=== PATIENT | female | born 1965 | race Caucasian/White ===

== ENCOUNTER 2023-05-11 11:18 | Outpatient (CLI) | payer BC, SELFPAY ==
[2023-05-11 11:56] LABS: Basophils Percent Auto 0.4 % (0.2-1.2); Eosinophils Absolute Auto 0.1 K/mm3 (0-0.3); Eosinophils Percent Auto 2.1 % (0-4.4); Hematocrit 44.4 % (37.0-47.0); Hemoglobin 14.5 g/dL (12.0-15.0); Immature Granulocyte Absolute 0.02 K/mm3 (0.00-0.031); Immature Granulocyte Percent A 0.4 % (0-0.5); Lymphocytes Absolute Auto 1.55 K/mm3 (0.9-3.2); Lymphocytes Percent Auto 29.2 % (18.3-44.2); Mean Corpuscular HGB Conc 32.7 g/dl (32-36); Mean Corpuscular Hemoglobin 30.9 pg (26-34); Mean Corpuscular Volume 94.5 fl (80-100); Mean Platelet Volume 10.4 fl (7.4-10.4); Monocytes Absolute Auto 0.4 K/mm3 (0.1-0.6); Monocytes Percent Auto 7.5 % (2.6-8.5); Neutrophils Absolute Auto 3.2 K/mm3 (1.3-6.7); Neutrophils Percent Auto 60.4 % (45.5-73.1); Platelet Count Result 221 k/mm3 (150-375); Red Cell Distribution Width 12.1 % (11.5-14.5); White Blood Count 5.3 K/mm3 (4.5-10.0)
== END 2023-05-11 11:19 | disposition home or self-care (01) ==
PROVIDERS: PCP Family Medicine; Visit Provider Obstetrics & Gynecology
DX: Z01.812 Encounter for preprocedural laboratory examination (principal); N81.4 Uterovaginal prolapse, unspecified
CPT/HCPCS: 36415; 85025; 86850; 86900; 86901

== ENCOUNTER 2023-05-15 03:15 | Day surgery (SDC) | payer BC, SELFPAY ==
[2023-05-01 13:46] VITALS: BMI 27.5
--- NOTE | 2023-05-01 13:49 | PC.NURSE ---
Report to the Outpatient Waiting Room, entrance under the green pavilion located off [facility], at time _0930_ on date _[id number]_. Planned Procedure Time: _1130_. Time changes happen often and if your time is changed the preop area will call you the afternoon before. - You and your visitor will be asked to self-screen and do not enter if you have any COVID symptoms. - A mask is optional within the hospital at this time. Patients may have clear liquids (water, carbonated beverages, clear teas, apple juice) until 3 hours prior to surgery with a maximum of 20 ounces. - No food from midnight until time of surgery Take the following medications with a SIP of water the morning of surgery: ___Synthroid DO NOT STOP ANY OF YOUR OTHER PRESCRIPTION MEDICATIONS PRIOR TO SURGERY ?EXCEPT THE FOLLOWING Medications to discontinue per physician None Date to take last dose Please no make-up, nail omani, hairspray, perfume, deodorant, or body powder the day of surgery. No jewelry (including any body piercings) or valuables the day of surgery, leave them at home. Please take a shower or bath the night before, or the morning of, surgery with an antibacterial soap. Wear comfortable, loose fitting clothing. - Jewelry must be removed prior to entering the operating room. Rings and piercings that are not removed may be cut off. - The hospital will not accept responsibility for valuables. - Please leave all valuables, including medications, at home the day of surgery. If you are going home after surgery, a licensed local company hazmat driver must drive you home. - NO public transportation without another adult if you receive anesthesia. - We recommend that an adult stay with you for 24 hours following discharge. - We also recommend that you do not drive, make important decision, drink alcoholic beverages, or take any drugs that were not prescribed by your health care provider for at least 24 hours after your discharge time. Follow any additional instructions given to you from your surgeon. If you or anyone in your household have experienced Covid symptoms in the past week, please notify your surgeon or the nurse liaison at the phone number below for possible testing. Telephone instructions given to __Patient___and asked if any additional questions and then verbalized understanding. Patient advised to call surgeon office or pre surgery nurse liaison [phone] if any additional questions.
--- NOTE | 2023-05-12 07:18 | PM.IMHP ---
H&P: HPI History of Present Illness Date/Time: 05/12/23 07:18 Chief Complaint: uterine fibroids/ uterine prolapse/pelvic pain/ abdominal hernia Narrative: this is a 57-year-old female 3 para 3 admitted for robotic total vaginal direct me and bilateral salpingo-oophorectomy as well as hernia repair with Dr. Serrato. Says second-degree prolapse with uterine fibroids pelvic pain and dyspareunia risks and benefits of this procedure reviewed including exclusive of , aspiration pneumonia, bleeding, transfusion, perforation injury to bowel, bladder, ureters, or other internal organs with need for open laparotomy. She received the A[employer] handout entitled hysterectomy as well as de Gianfranco handout. She had all questions answered. She asked to proceed PMFSH Past Medical History Medical History Asthma History of blood transfusion Hypothyroid Surgical History Surgical History History of appendectomy History of endometrial ablation Family History Family History Other Diabetes mellitus Heart disease Hypertension Social History Social History Years smoked: 10 Smoking status: Former smoker Tobacco type: cigarettes Smoking end date: 05/01/19 Alcohol intake: current Alcohol use details: socially Living arrangements: with family Occupation/Education: occupation Additional occupation/education comments: Self Employed Spiritual care concerns: No Meds Home Medications and Allergies Home Medications Medication Instructions Recorded Confirmed Type levothyroxine 25 mcg tablet 25 mcg PO DAILY 01/26/23 05/01/23 History (Synthroid) Allergies Allergy/AdvReac Type Severity Reaction Status Date / Time azithromycin AdvReac Intermediate Rash Verified 05/01/23 13:32 Exam Const: General: cooperative, healthy appearing, comfortable and average body habitus Orientation/consciousness: oriented to person, oriented to place and oriented to time HENMT: Head: normal to inspection Resp: Effort & Inspection: normal respiratory effort Cardio: Rate: regular rate Rhythm: regular rhythm Heart sounds: S1 normal heart sound present and S2 normal heart sound present GI: Inspection: visible herniation GI Palp: Yes abdominal tenderness : External Female Exam: normal external appearance Speculum Exam - Vagina: normal appearance of the vagina Speculum Exam - Cervix: normal appearance of the cervix ( second-degree prolapse present) Bimanual exam- vagina & uterus: enlarged Bimanual Exam- Adnexa, other: normal adnexae Assessment and Plan Assessment and plan (1) Ventral hernia: Code(s): K43.9 - Ventral hernia without obstruction or gangrene Status: Acute (2) Pelvic pain: Code(s): R10.2 - Pelvic and perineal pain Status: Acute (3) Uterine fibroid: Code(s): D25.9 - Leiomyoma of uterus, unspecified Status: Acute (4) Uterine prolapse: Code(s): N81.4 - Uterovaginal prolapse, unspecified Status: Acute Plan robotic total vaginectomy and bilateral salpingo-oophorectomy. Dr. Obando will proceed with hernia separate cover
[2023-05-15] VITALS (10 sets, daily range): BP systolic 94–129; BP diastolic 61–80; PULSE 61–94; RESP 12–20; TEMP 36.3–37.1; O2SAT 95–100
--- NOTE | 2023-05-15 06:40 | WPDHPUPDATE1 ---
History and Physical Update Update Date/Time: 05/15/23 06:40 History and Physical has been reviewed, including an updated exam of the patient. There are NO changes in the patient's condition. Risks, benefits, and alternatives have been discussed and questions answered. Patient agrees to proceed with procedure.
[2023-05-15] MEDS: LACTATED RINGERS 1,000 ML 30 ML IV CONT ×2 (10:23→14:11)
[2023-05-15] MEDS: KETOROLAC 15 MG/ML VIAL (*BKC) IV PUSH (10:24)
[2023-05-15] MEDS: ACETAMINOPHEN 500 MG TABLET 1000 MG PO (10:24)
--- NOTE | 2023-05-15 11:29 | WPDHPUPDATE1 ---
History and Physical Update Update Date/Time: 05/15/23 11:29 History and Physical has been reviewed, including an updated exam of the patient. There are NO changes in the patient's condition. Risks, benefits, and alternatives have been discussed and questions answered. Patient agrees to proceed with procedure.
--- NOTE | 2023-05-15 11:30 | PM.IMHP ---
H&P: HPI History of Present Illness Date/Time: 05/15/23 11:30 Chief Complaint: umbilical hernia Narrative: Anne is a 57 y/o female who is seen in the office at the request of Dr. Harinder Gabriel for evaluation of umbilical hernia. She reports having noticed an umbilical bulge that started 1 year ago and has increased in size. She reports as having a burning pain associated with it. She is wanting to coordinate this case with Dr. Harinder Gabriel who will be doing a hysterectomy. Review of Systems Review of Systems: All systems reviewed & are unremarkable except as noted in HPI and below PMFSH Past Medical History Medical History Asthma History of blood transfusion Hypothyroid Surgical History Surgical History History of appendectomy History of endometrial ablation Family History Family History Other Diabetes mellitus Heart disease Hypertension Social History Social History Years smoked: 10 Smoking status: Former smoker Tobacco type: cigarettes Smoking end date: 05/01/19 Alcohol intake: current Alcohol use details: socially Living arrangements: with family Occupation/Education: occupation Additional occupation/education comments: Self Employed Spiritual care concerns: No Meds Home Medications and Allergies Home Medications Medication Instructions Recorded Confirmed Type levothyroxine 25 mcg tablet 25 mcg PO DAILY 01/26/23 05/15/23 History (Synthroid) hydrocodone 5 mg-acetaminophen 325 1 tablet PO Q4H PRN pain #30 tabs 05/15/23 Rx mg tablet Allergies Allergy/AdvReac Type Severity Reaction Status Date / Time latex Allergy Severe Swelling Verified 05/15/23 09:24 azithromycin AdvReac Intermediate Rash Verified 05/15/23 09:22 Vital Signs Vital Signs - 24 hr 05/15/23 09:56 Temperature 36.8 C Pulse Rate 76 Respiratory Rate 16 Blood Pressure 129/69 Pulse Oximetry 97 Oxygen Delivery Room Air Exam Const: General: cooperative, comfortable and no acute distress Resp: Auscultation: clear to auscultation bilaterally Cardio: Rate: regular rate Rhythm: regular rhythm GI: Inspection: normal to inspection and distended GI Palp: Yes abdominal tenderness, Yes Soft to palpation and Yes Tenderness to palpation present (GI) Other: 3 cm umbilical defect, tender Skin: General skin exam: normal color and no rashes or lesions noted Assessment and Plan Assessment and plan (1) Ventral hernia: Code(s): K43.9 - Ventral hernia without obstruction or gangrene Status: Acute Assessment and Plan: slightly larger in size, will repair robotically c mesh in concurrent case with Dr. Arias
[2023-05-15] MEDS: ceFAZolin 2 GM/D5W 50 ML 2 GM/50 ML BAG IVPB (11:39)
--- NOTE | 2023-05-15 12:38 | W.PM.PROC2 ---
Procedure Note - Detailed Date of Procedure 05/15/23 Pre-op Diagnosis [place] proplapse, pelic pain, dyspareunia, ventral he Post-op Diagnosis Same Procedure Performed Robotic total vaginal hysterectomy and bilateral salpingo-oophorectomy. This was done in conjunction with ventral repair robotically please see his operative report separate cover Surgeon Jason Gabriel MD Anesthesia General Indications Is a 57-year-old female with uterine prolapse pain dyspareunia and a ventral hernia Findings Moderate-sized ventral hernia. Uterus is mildly enlarged. With second-degree prolapse. Ovaries and tubes appeared within normal limits. Description of Procedure Patient was prepped draped in the normal sterile fashion placed in dorsal lithotomy position. Under excellent general trach anesthesia weighted speculum placed posterior fornix vagina. Anterior lip of cervix grasped with single-tooth tenaculum. Uterus sounded to 9cm. Serial dilatation with fragmented dilators performed followed by passage of the 8 RORO and the 3. Cold cup. Next the 16 [place] catheter was placed in the bladder drained of clear urine. The weighted speculum and single-tooth removed. The gloves were changed. A supraumbilical incision made the Veress needle passed in the abdomen. Abdomen filled with CO2 gas to 15mm Hg. The 8mm trocar advanced in the abdomen. Downside visualized no injury seen. Patient placed in 20? Trendelenburg. Right left lateral quadrant incisions were made the 8mm trocars advanced under direct visualization assuring no injury. A left upper quadrant incision made the 8mm trocar advanced under direct visualization assuring no injury. The robot was docked. Attention was turned to the certified rehabilitation counselor. The left round ligament ligament was grasped, burned, cut. Anterior bladder flap was formed by sharply dissecting the peritoneum. This was brought to the opposite round ligament was class, burned, cut. Next the left infundibulopelvic structure was skeletonized to remove the left ovary and tube. This was clamped, burned, cut brought to the level of previously cut round ligament. In like fashion removing the right ovary, infundibulopelvic structure was skeletonized clamping burning cutting and bringing this to level of the previously cut round ligament. Cardinal broad ligaments on the left were then serially skeletonized clamping burning cutting and hugging the cervix uterus until the tortuous uterine vessels could be seen on the left. They were individually clamped, burned, cut. In like fashion the cardinal broad ligaments on the right were serially skeletonized clamping burning cutting hugging the cervix uterus to the uterine vessels could be seen on the right these were individually clamped, burned, cut. Excellent blanching the uterus was noted. A colpotomy incision was made in the cervix uterus ovaries and tubes removed through the vagina. Vagina was closed with continuous running 0V lock from lateral edge to lateral edge back to midline. Irrigation undertaken to clear. Hemostasis was assured blood loss was about 5cc at that point. The robot was undocked the gas removed from the abdomen. The trocars removed the incisions closed with 4 Monocryl and glue. At this point Dr. Serrato to cover for repair of the ventral hernia there were no complications to this point Estimated Blood Loss 5 Drains No Packing No Pathology Yes Complications No immediate complications Condition Stable Disposition PACU
--- NOTE | 2023-05-15 12:43 | P.DS_ITS ---
DS: Admitting Diagnosis Discharge Date 05/16/2023 Admitting Diagnosis Uterine prolapse/uterine fibroids/pelvic pain/ventral hernia DS: Discharge Diagnosis Discharge Diagnosis (1) Uterine prolapse: Code(s): N81.4 - Uterovaginal prolapse, unspecified Status: Acute (2) Uterine fibroid: Code(s): D25.9 - Leiomyoma of uterus, unspecified Status: Acute (3) Pelvic pain: Code(s): R10.2 - Pelvic and perineal pain Status: Acute (4) Ventral hernia: Code(s): K43.9 - Ventral hernia without obstruction or gangrene Status: Acute DS: Summary Hospital Course Reason for hospitalization: Patient was admitted for robotic total hysterectomy and bilateral salpingo- oophorectomy 09/15/2022 she was also had ventral hernia repair Hospital Course: Her hospital course unremarkable. For 24hour stay she remained afebrile. She was up, voiding without difficulty, ambulating eating reviewed I examined generally without complaints. Time Spent with Patient Time attestation: Total time spent providing and/or coordinating discharge services: Exam Const: General: cooperative, healthy appearing and comfortable Nutritional Appearance: average body habitus Orientation/consciousness: oriented to person, oriented to place and oriented to time Resp: Effort & Inspection: normal respiratory effort Cardio: Rate: regular rate Rhythm: regular rhythm Heart sounds: S1 normal heart sound present and S2 normal heart sound present GI: Inspection: normal to inspection and incision (Incisions are clean dry and intact) Discharge Plan Discharge Patient Disposition: Home, Self-Care Stand Alone Forms: General Discharge Instructions Follow-up/Referrals: Jason Patel MD [Physician] - Discharge Medications: New hydrocodone-acetaminophen 5-325 mg tablet 1 tablet PO Q4H PRN (Reason: pain) Qty: 30 0RF No Action levothyroxine [Synthroid] 25 mcg tablet 25 mcg PO DAILY
--- NOTE | 2023-05-15 14:13 | P.OP_ITS ---
Procedure Note - Detailed Date of Procedure 05/15/23 Pre-op Diagnosis Supraumbilical ventral hernia, umbilical hernia Post-op Diagnosis Same Procedure Performed robotic assisted repair supraumbilical ventral hernia and umbilical hernia with defects totaling approximately 4.5 cm Surgeon Johnna Boyer MD Anesthesia General Indications 57-year-old female presenting to the office with periumbilical bulging over the last year. Patient reports that bulging has worsened and become much more symptomatic over that time. Findings Supraumbilical ventral hernia measuring approximately 1 cm, umbilical hernia measuring approximately 2.5 cm, approximate 1 cm gap between the 2 hernias Description of Procedure Please note that the patient had robotic assisted hysterectomy by Dr. Rodriguez prior to my portion of the procedure. The patient was already under general anesthesia and prepped and draped in the normal sterile fashion. Once arriving in the room, a time-out was done to verify the patient's identity, as well as the procedure being performed. Began by assessing the previously placed ports, an additional 8 mm left lower quadrant port was added. I was then able to dock the robot to the 3 left sided 8 mm ports. The upper midline port was used as an technician assistant port. I was able to identify the hernias in the periumbilical area. There was noted to be a smaller supraumbilical ventral hernia and a larger umbilical hernia. There was noted to be in approximately 1 cm gap between the 2 hernias. Using careful dissection, I was able to create a peritoneal flap including reduction of both these hernias. These hernias both were noted to contain preperitoneal fat. Once the defects were completely out and identified, I used a 0 Stratafix suture to close both defects. Again the supraumbilical de fect measured approximately 1 cm and the larger umbilical defect measured approximately 2.5 cm. Once completely closed, a 10 x [address] mesh was placed into the abdominal cavity. This mesh was centered around the larger umbilical defect. A positional stitch was brought through the umbilicus. I then sutured circumferentially around the mesh to the anterior abdominal wall using 2 0 V lock suture x2. Once the mesh was sutured in place, it was noted to have good wide local coverage of both defects. The mesh was flat and tension- free. I then reapproximated the flap to the anterior abdominal wall a getting good coverage of the mesh again using a 2 0 V lock suture. At this point, the robot was undocked and all ports were removed. All ports were then closed with 4-0 Monocryl subcuticular sutures. Dermabond was placed on all wounds. The patient tolerated the procedure well and was extubated postoperatively. She will be transferred to the recovery room in stable condition. Estimated Blood Loss 5 Pathology None sent Complications No immediate complications Condition Stable Disposition PACU [facility] Billing Surgery - Charge Forward: Surgery Billing
[2023-05-15] MEDS: fentaNYL CITRATE INJ (*CRX) 100 MCG/2 ML VIAL 25 MCG IV PUSH ×6 (14:15→14:53)
[2023-05-15] MEDS: HYDROmorphone HCL INJ (*CRX) 1 MG/ML SYR 0.5 MG IV PUSH (15:08)
[2023-05-15] MEDS: ONDANSETRON INJ 4 MG/2 ML VIAL IV PUSH ×2 (15:08→20:48)
[2023-05-15] MEDS: diphenhydrAMINE HCl INJ 50 MG/ML VIAL 25 MG IV PUSH (15:24)
[2023-05-15] MEDS: DEXTROSE 5%/LACTATED RINGERS 1,000 ML 125 ML IV CONT (16:00)
[2023-05-15] MEDS: DEXTROSE 5%/0.45% SOD CHL 1,000 ML 125 ML (16:40)
[2023-05-15] MEDS: SIMETHICONE 80 MG TAB.CHEW PO (16:40)
[2023-05-15] MEDS: KETOROLAC 30 MG/ML VIAL (*BKC) IV PUSH (17:05)
[2023-05-15] MEDS: DOCUSATE SODIUM 100 MG CAPSULE PO (20:12)
[2023-05-15] MEDS: HYDROcodone/acetaminophen (*CRX) 10-325 MG TABLET 1 TAB PO (20:18)
[2023-05-16 00:30] VITALS: BP 116/76; PULSE 95; RESP 20; TEMP 37.1; O2SAT 94
[2023-05-16] MEDS: KETOROLAC 30 MG/ML VIAL (*BKC) IV PUSH (00:37)
[2023-05-16] MEDS: HYDROcodone/acetaminophen (*CRX) 10-325 MG TABLET 1 TAB PO (00:37)
[2023-05-16] MEDS: ONDANSETRON INJ 4 MG/2 ML VIAL IV PUSH (03:50)
[2023-05-16 05:54] LABS: Basophils Percent Auto 0.1 % (0.2-1.2); Hematocrit 39.8 % (37.0-47.0); Hemoglobin 12.8 g/dL (12.0-15.0); Immature Granulocyte Absolute 0.03 K/mm3 (0.00-0.031); Immature Granulocyte Percent A 0.3 % (0-0.5); Lymphocytes Absolute Auto 1.14 K/mm3 (0.9-3.2); Lymphocytes Percent Auto 10.9 % (18.3-44.2); Mean Corpuscular HGB Conc 32.2 g/dl (32-36); Mean Corpuscular Volume 96.4 fl (80-100); Mean Platelet Volume 10.6 fl (7.4-10.4); Monocytes Absolute Auto 0.7 K/mm3 (0.1-0.6); Monocytes Percent Auto 6.3 % (2.6-8.5); Neutrophils Absolute Auto 8.6 K/mm3 (1.3-6.7); Neutrophils Percent Auto 82.4 % (45.5-73.1); Platelet Count Result 203 k/mm3 (150-375); Red Blood Count 4.13 M/mm3 (4.2-5.4); Red Cell Distribution Width 12.2 % (11.5-14.5); White Blood Count 10.4 K/mm3 (4.5-10.0)
[2023-05-16] MEDS: IBUPROFEN 600 MG TABLET PO (09:15)
[2023-05-16] MEDS: ENOXAPARIN 40 MG/0.4 ML SYRINGE SUB-Q (09:15)
[2023-05-16] MEDS: HYDROcodone/acetaminophen (*CRX) 5-325 MG TABLET 1 TAB PO (09:15)
[2023-05-16] MEDS: DOCUSATE SODIUM 100 MG CAPSULE PO (09:15)
[2023-05-16] MEDS: SIMETHICONE 80 MG TAB.CHEW PO (09:15)
--- NOTE | 2023-05-16 09:28 | PM.GYNPNOP ---
TELEPHONIC NURSE - A/P Assessment and plan (1) Uterine prolapse: Code(s): N81.4 - Uterovaginal prolapse, unspecified Status: Acute Assessment and Plan: A: POD#1, doing well. P: Home to f/u 2 weeks. (2) Uterine fibroid: Code(s): D25.9 - Leiomyoma of uterus, unspecified Status: Acute (3) Pelvic pain: Code(s): R10.2 - Pelvic and perineal pain Status: Acute (4) Ventral hernia: Code(s): K43.9 - Ventral hernia without obstruction or gangrene Status: Acute Postoperative Procedures: Procedures Operation Date: 05/15/23 11:30 Actual Procedure Side Surgeon p Robotic Assisted Total Vaginal Hystectomy with Bilateral Salpingo-oophorectomy Bilateral Jason Gabriel MD s Robotic Assisted Ventral Hernia Repair with Mesh Johnna Boyer MD Time Spent With Patient Time with patient: less than 15 minutes TELEPHONIC NURSE- PN:Subj Post-Op Subjective Date/time seen: 05/16/23 09:28 Interval history: Pain OK. Tolerating diet. Voiding. Would like to go home. Exam Narrative: AVSS I/O OK ABD soft, nontender. Incisions c/d/i. EXT nontender TELEPHONIC NURSE - PN: Obj Data Vital Signs Vital Signs: Vital Signs - 24 hr 05/15/23 09:56 05/15/23 14:11 05/15/23 14:25 Temperature 36.8 C 36.3 C L Pulse Rate 76 84 71 Respiratory Rate 16 17 12 Blood Pressure 129/69 119/69 101/66 Pulse Oximetry 97 98 100 Oxygen Delivery Room Air Simple Face Mask Simple Face Mask Oxygen Flow Rate 8 8 05/15/23 14:40 05/15/23 14:55 05/15/23 15:10 Temperature Pulse Rate 64 88 61 Respiratory Rate 12 18 12 Blood Pressure 110/73 94/69 L 105/61 Pulse Oximetry 99 98 99 Oxygen Delivery Nasal Cannula Nasal Cannula Nasal Cannula Oxygen Flow Rate 3 3 3 05/15/23 15:25 05/15/23 15:38 05/15/23 16:00 Temperature 36.6 C Pulse Rate 65 66 67 Respiratory Rate 16 12 12 Blood Pressure 105/69 113/80 125/74 Pulse Oximetry 100 100 99 Oxygen Delivery Nasal Cannula Nasal Cannula Oxygen Flow Rate 3 2 05/15/23 16:00 05/15/23 20:33 05/15/23 20:33 Temperature 37.1 C Pulse Rate 67 94 Respiratory Rate 12 20 Blood Pressure 115/64 Pulse Oximetry 100 95 95 Oxygen Delivery Nasal Cannula Room Air Oxygen Flow Rate 2 05/16/23 00:30 Temperature 37.1 C Pulse Rate 95 Respiratory Rate 20 Blood Pressure 116/76 Pulse Oximetry 94 Oxygen Delivery Oxygen Flow Rate Intake/Output Intake/Output: Intake & Output 05/13/23 05/14/23 05/15/23 05/16/23 23:59 23:59 23:59 23:59 Intake Total 850 1500 Output Total 105 850 Balance 745 650 Meds/Results Medications: Active Medications Generic Name Dose Route Start Last Admin Trade Name Freq PRN Reason Stop Dose Admin Hydrocodone Bitart/Acetaminophen 1 tab 05/15/23 16:20 Hydrocodone/Acetaminophen (*Crx) 5-325 Mg Tablet PO Q3H PRN Pain Rated 5 or Less Hydrocodone Bitart/Acetaminophen 1 tab 05/15/23 16:20 05/16/23 00:37 Hydrocodone/Acetaminophen (*Crx) 10-325 Mg Tablet PO 1 tab Q3H PRN Administration Pain Rated 6 or Greater Docusate Sodium 100 mg 05/15/23 17:00 05/15/23 20:12 Docusate Sodium 100 Mg Capsule PO 100 mg BID RADHA Administration Enoxaparin Sodium 40 mg 05/16/23 09:00 Enoxaparin 40 Mg/0.4 Ml Syringe SUB-Q DAILY RADHA Dextrose/Lactated Ringer's 1,000 mls @ 125 mls/hr 05/15/23 16:20 05/16/23 00:40 Dextrose 5%/Lactated Ringers IV CONT Infused .Q8H RADHA Infusion Ibuprofen 600 mg 05/15/23 16:20 Ibuprofen 600 Mg Tablet PO Q6H PRN Cramping Ketorolac Tromethamine 30 mg 05/15/23 16:20 05/16/23 00:37 Ketorolac 30 Mg/Ml Vial (*Bkc) IV PUSH 05/20/23 16:19 30 mg Q6H PRN Administration Pain Rated 4-6 Naloxone HCl 0.1 mg 05/15/23 16:20 Naloxone Hcl 0.4 Mg/Ml Vial IV PUSH Q2M PRN Respiratory rate less than 10 Ondansetron HCl 4 mg 05/15/23 16:20 05/16/23 03:50 Ondansetron Inj 4 Mg/2 Ml Vial IV PUSH 4 mg Q6H PRN Adm
== END 2023-05-16 09:15 | disposition home or self-care (01) ==
LOC: ANHSURGERY 09:11 → ANHOB2 16:21
PROVIDERS: Surgery; PCP Family Medicine; Visit Provider Obstetrics & Gynecology
PROC: (CPT 58552; principal; 2023-05-15 11:30)
PROC: (CPT 49593; 2023-05-15 11:30)
DX: N81.2 Incomplete uterovaginal prolapse (principal); K43.9 Ventral hernia without obstruction or gangrene; K42.9 Umbilical hernia without obstruction or gangrene; N72 Inflammatory disease of cervix uteri; N88.8 Other specified noninflammatory disorders of cervix uteri; N70.11 Chronic salpingitis; N80.03 Adenomyosis of the uterus; D25.0 Submucous leiomyoma of uterus; N83.8 Other noninflammatory disorders of ovary, fallopian tube and broad ligament; R10.2 Pelvic and perineal pain; N94.10 Unspecified dyspareunia; J45.909 Unspecified asthma, uncomplicated; E03.9 Hypothyroidism, unspecified; Z87.891 Personal history of nicotine dependence
CPT/HCPCS: 58552; 49593; S2900 ×2; 36415; 85025; 88307; 99199; A9270; C1781; J0690; J1100; J1170; J1200; J1650; J1885; J2250; J2405; J2704; J3010; J7030; J7120; J7121

== ENCOUNTER 2023-08-04 10:28 | Outpatient (CLI) | payer BC, SELFPAY ==
--- NOTE | ~2023-08-04 | CT_ITS ---
Non-contrast CT scan of the Abdomen Clinical indication: Abdominal pain Technique: 2.5 mm axial scans were obtained through the abdomen without intravenous or oral contrast . Dose reduction technique was used on this scan by utilizing automated exposure control and iterativ e reconstruction technique. The dose-length product (DLP) was 354.99 mGy-cm. Findings: Images through the lung bases reveal no abnormalities. There is no evidence of renal or ureteral calculi. The kidneys and the ureters are nondilated. The liver, spleen, pancreas, gallbladder, and adrenals appear normal. There is no aortic aneurysm. Questionable area of developing fat necrosis just deep to the umbilicus. Visualized bowel loops are u nremarkable. No ascites. Impression: Questionable developing area of fat necrosis/omental infarct just deep to the umbilicus. Reviewed, dictated and finalized at location . [employer] Impression: Questionable developing area of fat necrosis/omental infarct just deep to the u mbilicus.
== END 2023-08-04 10:29 ==
PROVIDERS: PCP Surgery; Visit Provider Surgery
DX: R10.9 Unspecified abdominal pain (principal)
CPT/HCPCS: 74150

== ENCOUNTER 2024-04-13 08:04 | Outpatient (CLI) | payer BC, SELFPAY ==
--- NOTE | ~2024-04-13 | US_ITS ---
EXAMINATION: US right upper quadrant DATE: 04/13/2024 10:15 INDICATION: Right upper quadrant abdominal pain. TECHNIQUE: Multiple grayscale and Doppler ultrasound images of the abdomen were obtained. COMPARISON: CT abdomen 08/04/2023 FINDINGS: Abdominal aorta is normal in caliber. The visualized portions of the head, body, and tail o f the pancreas are normal. The liver is normal without focal lesion. There is normal flow in main por bethany vein. The gallbladder is normal in size. No gallstones or gallbladder wall thickening. There is n o sonographic Garcia's sign. The common duct is normal and measures 3 mm. Right kidney is normal in s ize. There is a 1.2 cm cyst in right kidney. IMPRESSION: 1. No etiology for the patient's symptoms. Reviewed, dictated and finalized at location A.
== END 2024-04-13 08:05 | disposition home or self-care (01) ==
PROVIDERS: PCP Family Medicine; Visit Provider Surgery
DX: R10.11 Right upper quadrant pain (principal)
CPT/HCPCS: 76705

== ENCOUNTER 2024-04-25 07:48 | Outpatient (CLI) | payer BC, SELFPAY ==
--- NOTE | ~2024-04-25 | NM_ITS ---
EXAMINATION: NM hepatobiliary w pharm DATE: 04/25/2024 13:12 INDICATION: Right upper quadrant abdominal pain. COMPARISON: Ultrasound 04/13/2024 TECHNIQUE: 5 mCi Tc-99m mebrofenin (Choletec) was administered intravenously. Scintigraphic images o f the abdomen were obtained for one hour. Then, 1.6 mcg sincalide (Kinevac) IV was administered, and imaging was continued for 30 minutes. FINDINGS: There is normal clearance of radiotracer from the blood pool. There is homogeneous tracer u ptake by the liver. Activity progresses to the bowel and gallbladder. Gallbladder ejection fraction (GBEF) was 86%. Note that most patients with gallbladder dysfunction have GBEF < 35%, which overlaps with the broad normal range of 10-90%. IMPRESSION: 1. Normal hepatobiliary scintigraphy. Reviewed, dictated and finalized at location A.
== END 2024-04-25 07:49 | disposition home or self-care (01) ==
PROVIDERS: PCP Family Medicine; Visit Provider Surgery
DX: R10.11 Right upper quadrant pain (principal)
CPT/HCPCS: 78227; A9537; J2805

== ENCOUNTER 2024-10-07 09:40 | Outpatient (CLI) | payer BC, SELFPAY ==
--- NOTE | ~2024-10-07 | CT_ITS ---
CT sinus w con Ordering provider: Hailey Andrade, SAMPLING EXPERT History: . Chronic sinusitis . Comparison: None. Technique: Thin slice Scans CT of the paranasal sinuses was performed with coronal and sagittal refor matted images. No IV contrast. . Automated exposure control and iterative reconstruction technique w ere employed. The dose-length product was 280.01 mGy-cm. 75 mL Omnipaque 350 was given IV. Findings: NASAL SEPTUM: Left nasal septal deviation. OSTEOMEATAL UNITS: Bilaterally patent. NASAL TURBINATES AND NASOPHARYNX: Normal. PARANASAL SINUSES: Well aerated. VISUALIZED MASTOIDS: Normal as visualized. BONES: Normal. SUPERFICIAL SOFT TISSUES/VISUALIZED BRAIN PARENCHYMA: Normal. IMPRESSION: Left nasal septal deviation. Clear paranasal sinuses. Reviewed, dictated and finalized at location A. RTING SPECIALIST
[2024-10-07 10:36] LABS: Estimated Glomerular Filt Rate 57
== END 2024-10-07 09:41 | disposition home or self-care (01) ==
PROVIDERS: PCP Family Medicine; Visit Provider Nurse Practitioner
DX: J34.2 Deviated nasal septum (principal); J32.9 Chronic sinusitis, unspecified
CPT/HCPCS: 70487; Q9967

== ENCOUNTER 2025-04-21 01:00 | Day surgery (SDC) | payer BC, SELFPAY ==
[2025-04-17 09:52] VITALS: BMI 28.3
--- NOTE | 2025-04-17 10:06 | PC.NURSE ---
Report to the Outpatient Waiting Room, entrance under the green pavilion located off [facility], at time _0600_ on date _[id number]_. Planned Procedure Time: _0730_.? Time changes happen often and if your time is changed the preop area will call you the afternoon before. - You and your visitor will be asked to self-screen and do not enter if you have any COVID symptoms. Please call surgeon if you need to reschedule. - A mask is optional within the hospital at this time. Patients may have clear liquids (water, carbonated beverages, clear teas, apple juice) until 3 hours prior to surgery with a maximum of 20 ounces. - No food from midnight until time of surgery and no smoking, or chewing tobacco (or any form of nicotine). No chewing gum, candy or mints. Take only the following medications with a SIP of water on the morning of surgery: __Levothyroxine DO NOT STOP ANY OF YOUR OTHER PRESCRIPTION MEDICATIONS PRIOR TO SURGERY EXCEPT THE FOLLOWING Hold all vitamins and supplements for 3 days per anesthesiologist. Medications to discontinue per physician Date to take last dose Please no make-up, nail spanish, hairspray, perfume, deodorant, or body powder the day of surgery.? No jewelry (including any body piercings) or valuables the day of surgery, leave them at home.? Please take a shower or bath the night before, or the morning of, surgery with an antibacterial soap.? Wear comfortable, loose fitting clothing.? - Jewelry must be removed prior to entering the operating room.? Rings and piercings that are not removed may be cut off. - The hospital will not accept responsibility for valuables.? - Please leave all valuables, including medications, at home the day of surgery. If you are going home after surgery, a licensed charter and tour bus driver must drive you home.? - NO public transportation without another adult if you receive anesthesia. - We recommend that an adult stay with you for 24 hours following discharge. - We also recommend that you do not drive, make important decision, drink alcoholic beverages, or take any drugs that were not prescribed by your health care provider for at least 24 hours after your discharge time. Follow any additional instructions given to you from your surgeon. Telephone instructions given to __Anne__and asked if any additional questions and then verbalized understanding. Patient advised to call surgeon office or pre surgery nurse liaison [phone] if any additional questions.
[2025-04-21] VITALS (14 sets, daily range): BP systolic 96–127; BP diastolic 51–86; PULSE 65–92; RESP 10–16; TEMP 36.3–36.6; O2SAT 91–99; BMI 29.5
--- OUTSIDE RECORDS SUMMARY | 2025-04-21 01:03 | XMS_ITS | Clinical Summary ---
Author Organization 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 Gender Identity Not on file Sexual Orientation Not on file Last Filed Vital Signs Vital Sign Reading Time Taken Comments Blood Pressure 108/80 03/04/2018 8:36 AM CDT Pulse 69 03/04/2018 8:36 AM CDT Temperature - - Respiratory Rate - - Oxygen Saturation - - Inhaled Oxygen Concentration - - Weight 72.2 kg (159 lb 2.1 oz) 03/04/2018 8:36 A M CDT Height 168.9 cm (5' 6.5) 03/04/2018 8:36 AM CDT Body Mass Index 25.3 03/04/2018 8:36 AM CDT Plan of Treatment Health Maintenance Due Date Last Done Comments Cervical Cancer Screening Pa p Smear (Age 30 to 64) Every 3 Years 1963 Colorectal Cancer Screening Colonoscopy (10 Years) 1963 Annual Physical 10/10/1966 Hepatitis C 10/10/1981 DTaP, Tdap and Td Vaccines ( 1 - Tdap) 10/10/1982 Cervical Cancer Screening Pa p with HPV Testing (Age 30 to 64) Every 5 Years 10/10/1993 Cervical Cancer Screening wi th HPV 10/10/1993 Pneumococcal Vaccine: 50+ Years (1 of 1 - PCV) 10/10/2013 Zoster Vaccines (1 of 2) 10/10/2013 Mammogram Screening 03/06/2023 03/06/2021 COVID-19 Vaccine (2024-2 6 season) 2025 11/09/2020, 10/10/2020 RSV Immunization or 60+ Years (1 - 1-dose 75+ series) 10/10/2038 Meningococcal B Vaccine Aged Out No l onger eligible based on patient's age to complete this topic Meningococcal Vaccine Aged Out No andrea ki eligible based on patient's age to complete this topic RSV Immunizations Under 20 Months Aged Out No longer eligible b ased on patient's age to complete this topic Procedures Procedure Name Priority Date/Time Associated Diagnosis Comments MG SCREENING W JESSICA JOAQUÍN DIGI Routine 03/06/2021 11:08 AM CDT Visit for screening mammogram from Last 3 Months or Most Recently Relevant to Health Maintenance Results * MG SCREENING W JESSICA JOAQUÍN DIGI (03/06/2021 11:08 AM CDT) Anatomical Region Laterality Modality Breast Bilateral Mammography 03/06/2021 5:00 PM CDT Impressions 03/06/2021 5:01 PM CDT IMPRESSION: Moderately dense breasts. No mammographic evidence of malignancy. Recommendation: 1: Routine screening mammogram Bilateral in 1 Year Assessment: ACR BI-RADS Category 2 - Benign. Referred By: DARLEEN HART Interpreted By: Luis Fernando Denney MD, 03/06/2021 5:00 PM Narrative 03/06/2021 5:01 PM CDT Examination: Digital screening mammogram with CAD. Clinical history: Asymptomatic patient presents for routine screening. Baseline. Comparison: None. Technique: Bilateral digital mammograms. The exam was interpreted with the use of a computer-aided detection (CAD) system. Additional 3-D tomosynthesis images were acquired. Tissue density: The breast tissue is heterogeneously dense. Findings: The breast tissue is heterogeneously dense. The dense tissue may obscure some lesions mammographically. Benign-appearing calcification noted. No suspicious mass, microcalcification or area of architectural distortion can be identified. From a mammographic standpoint, routine followup in one year would seem adequate. us Darleen Hart MD MAMMO Final Result from Last 3 Months or Most Recently Relevant to Health Maintenance Insurance [facility] Care Teams Steno Typist Relationship Specialty Start Date End Date Andrew Lovelace MD PCP - General FAMILY PRACTICE 02/21/21
[2025-04-21] MEDS: LACTATED RINGERS 1,000 ML 30 ML IV CONT ×3 (06:35→11:00)
[2025-04-21] MEDS: OXYMETAZOLINE HCL 0.05% NAS 15 ML BTL (*BKC) 2 SPRAY NASAL ×3 (06:40→06:50)
[2025-04-21] MEDS: ACETAMINOPHEN 500 MG TABLET 1000 MG PO (06:40)
--- NOTE | 2025-04-21 06:49 | P.PNAN_ITS ---
Anes - Initial Pre Proc Eval Procedure: Operation Date: 04/21/25 07:30 Proposed Procedures p Septoplasty, - Miko Darby MD s Image Guided Submucous Resection of Bilateral Inferior Turbinates, Fracture of Bilateral Nasal Inferior Turbinates, Bilateral Maxillary Antrostomy, Partial Surgical Bilateral Anterior Ethmoidectomy, Dilatation of Bilateral Frontal Ostium Using Balloon, - Miko Darby MD Date/Time: 04/21/25 06:49 Surgeon: Miko Darby MD Pre Op Diagnosis: Snoring, Hypertrophy nasal Turbinates, sinusitis Patient Data Age: 59 Gender: F Height: 1.68 m Weight: 79.5 kg Allergies Allergy/AdvReac Type Severity Reaction Status Date / Time latex Allergy Severe Swelling Verified 04/21/25 06:28 azithromycin AdvReac Intermediate Rash Verified 04/21/25 06:28 Home Medications ?Medication ?Instructions ?Recorded ?Confirmed ?Type azelastine 137 mcg (0.1 %) nasal 1 spray intranasal Q1 2H 30 days 11/28/24 04/17/25 Rx spray #30 mL ipratropium bromide 21 mcg (0.03 2 spray intranasal BI D 30 days #30 01/30/25 04/17/25 Rx %) nasal spray mL levothyroxine 50 mcg tablet 50 mcg PO DAILY 04/17/25 0 04/17/25 History (Synthroid) Patient hx anesthesia problems: none Family hx anesthesia problems: none Results Review: All pre-operative results and documents have been reviewed as part of the pre- operative evaluation. [facility] Past Medical History Medical History Allergic rhinitis Mouth breathing Hypertrophy of nasal turbinates Snoring Hypothyroid Asthma History of blood transfusion Surgical History Surgical History History of ventral hernia repair robotic assisted repair supraumbilical ventral hernia and umbilical hernia with defects totaling approximately 4.5 cm on 05/15/23 PDC History of appendectomy History of endometrial ablation Family History Family History Other Diabetes mellitus Heart disease Hypertension Social History Social History Social History: Caffeine-tea/coffee Years smoked: 10 Smoking status: Former smoker Tobacco type: cigarettes Smoking end date: 05/01/18 Alcohol intake: current Alcohol use details: socially Substance use: never Substance use type: does not use Do You Feel Safe in your Home?: Yes Lack of Transportation: No Lack of Food: Never True Current Housing: I Have Housing Concerned About Future Housing: No Difficulty Paying Gas/Electric Bills: No Difficulty Paying for Meds: No Currently Unemployed: No Education: Associate Degree Difficulty w/ Childcare or Family Care: No Living arrangements: with family Occupation/Education: occupation Additional occupation/education comments: Self Employed Spiritual care concerns: No Anes - Eval Final PreProcedure Day of Procedure 04/21/25 06:49 Patient weight: overweight Heart: regular rate and rhythm Lungs: clear to auscultation Airway: Mallampati scale class II Neurological: alert and oriented Last oral intake: >/= 8 hours ASA classification: II Emergent: no Anesthetic plan: proceed Anesthesia type and monitoring: general ETT and standard monitoring Results Review: All pre-operative results and documents have been reviewed as part of the pre-operative evaluation. Informed Consent: The patient's anesthetic plan and its attendant risks and benefits were discussed with the patient/family/POA. Questions were solicited and answers provided to the satisfaction of the patient/family/POA.
--- NOTE | 2025-04-21 06:58 | PM.IMHP ---
H&P: HPI History of Present Illness Date/Time: 04/21/25 06:58 Chief Complaint: chronic sinusitis,nasal blockage ,and mouth breathing Review of Systems Review of Systems: All systems reviewed & are unremarkable except as noted in HPI and below Constitutional: Constitutional: Reports as per HPI ENT: Reports as per HPI Respiratory: Respiratory: Reports as per HPI Gastrointestinal: Gastrointestinal: Reports as per HPI [facility] Past Medical History Medical History (Updated 04/21/25 @ 07:00 by Miko Darby MD) Chronic maxillary sinusitis Chronic ethmoidal sinusitis Allergic rhinitis Mouth breathing Hypertrophy of nasal turbinates Snoring Hypothyroid Asthma History of blood transfusion Surgical History Surgical History History of ventral hernia repair robotic assisted repair supraumbilical ventral hernia and umbilical hernia with defects totaling approximately 4.5 cm on 05/15/23 PDC History of appendectomy History of endometrial ablation Family History Family History Other Diabetes mellitus Heart disease Hypertension Social History Social History Social History: Caffeine-tea/coffee Years smoked: 10 Smoking status: Former smoker Tobacco type: cigarettes Smoking end date: 05/01/18 Alcohol intake: current Alcohol use details: socially Substance use: never Substance use type: does not use Do You Feel Safe in your Home?: Yes Lack of Transportation: No Lack of Food: Never True Current Housing: I Have Housing Concerned About Future Housing: No Difficulty Paying Gas/Electric Bills: No Difficulty Paying for Meds: No Currently Unemployed: No Education: Associate Degree Difficulty w/ Childcare or Family Care: No Living arrangements: with family Occupation/Education: occupation Additional occupation/education comments: Self Employed Spiritual care concerns: No Meds Home Medications and Allergies Home Medications ?Medication ?Instructions ?Recorded ?Confirmed ?Type azelastine 137 mcg (0.1 %) nasal 1 spray intranasal Q12H 30 days 11/28/24 04/17/25 Rx spray #30 mL ipratropium bromide 21 mcg (0.03 2 spray intranasal BID 30 days #30 01/30/25 04/17/25 Rx %) nasal spray mL levothyroxine 50 mcg tablet 50 mcg PO DAILY 04/17/25 04/17/25 History (Synthroid) Allergies Allergy/AdvReac Type Severity Reaction Status Date / Time latex Allergy Severe Swelling Verified 04/21/25 06:28 azithromycin AdvReac Intermediate Rash Verified 04/21/25 06:28 Exam Const: General: cooperative, healthy appearing, comfortable, no acute distress, well developed, alert, awake and Physically active Orientation/consciousness: oriented to person, oriented to place, oriented to time and patient oriented x3 HENMT: Head: normocephalic and atraumatic Ears: external ears normal and EAC's normal Face/Nose/Sinus: Normal external nose present and Normal nares present Mouth: Yes Normal oral and palatal mucosa present, Yes lip normal and Yes tongue normal Eyes: General: appearance normal, both eyes and all related structures Neck: Neck: normal visual inspection, full ROM and trachea midline Resp: Effort & Inspection: normal respiratory effort and able to speak in complete sentences Cardio: Rate: regular rate Neuro: General: oriented to person, oriented to place, oriented to time and patient oriented x3 Assessment and Plan Assessment and plan (1) Snoring: Code(s): R06.83 - Snoring Status: Acute (2) Hypertrophy of nasal turbinates: Code(s): J34.3 - Hypertrophy of nasal turbinates Status: Acute (3) Mouth breathing: Code(s): R06.5 - Mouth breathing Status: Acute (4) Allergic rhinitis: Qualifiers: Allergic rhinitis trigger: pollen Allergic rhinitis seasonality: seasonal Qualified Code(s): J30.1 - Allergic rhinitis due to pollen Code(s): J30.9 - Allergic rhinitis, unspecified Status: Acute (5) Chronic frontal sinusitis: Code(s): J32.1 - Chronic frontal sinusitis Status: Acute (6) Chronic ethmoidal sinusitis: Code(s): J32.2 - Chronic ethmoidal sinusitis Status: Acute (7) Chronic maxillary sinusitis: Code(s): J32.0 - Chronic maxillary sinusitis Status: Acute Plan 59-year-old female with acute persistent frontal sinusitis, acute persistent ethmoid sinusitis, acute sinus headache, deviated nasal septum hypertrophy of nasal turbinates Patient has had oral steroids in addition to topical nasal sprays as well as antibiotic treatment however she still frontal and ethmoid sinusitis Based on my review of the CT scan and the patient's symptoms, which include an active sinus infection resistant to medical treatment, sinus surgery is recommended. The imaging shows opacity in the left frontal and ethmoid sinuses. A maxillary antrostomy and anterior ethmoidectomy are recommended to access these areas and relieve the patient's pain. I have also reviewed the imaging study with the patient Will order: Anterior ethmoidectomy bilateral, bilateral frontal sinusotomies with balloon dilation, bilateral maxillary antrostomy, in addition to septoplasty bilateral turbinate reduction and cryotherapy of the posterior nasal -Risk of septoplasty procedures were discussed with the patient which include but not limited to; Bleeding, infection, septal perforation, saddle nose deformity, intranasal scarring -Risks for sinus surgery: injury to the skull base, injury to the eye, need for further surgery. Risk of recurrent disease is also discussed. All the questions were answered to the best of my ability and the patient wished to proceed. The procedures will be scheduled in a timely fashion.
--- NOTE | 2025-04-21 07:01 | WPDHPUPDATE1 ---
History and Physical Update Update Date/Time: 04/21/25 07:01 History and Physical has been reviewed, including an updated exam of the patient. There are NO changes in the patient's condition. Risks, benefits, and alternatives have been discussed and questions answered. Patient agrees to proceed with procedure.
--- NOTE | 2025-04-21 07:02 | P.OP_ITS ---
Procedure Note - Detailed Date of Procedure 04/21/25 Pre-op Diagnosis Snoring, Hypertrophy nasal Turbinates, sinusitis Post-op Diagnosis Same Procedure Performed ? Endoscopic septoplasty ? Nasal endoscopy with maxillary antrostomy bilaterally. ? Nasal endoscopy with complete ethmoidectomy bilaterally. ? Nasal endoscopy with frontal sinus balloon dilation left . ? Bilateral inferior turbinate reduction (intramural (submucosal) ablati on of the inferior turbinate.) ? Therapeutic fracture of the inferior turbinates bilaterally. Surgeon Miko Darby MD Anesthesia General Findings bilateral ethmoid disease involving the the whole anterior and posterior ethmoids the right frontal sinus was patent without disease Description of Procedure The patient was seen in the preoperative area, informed consent was checked and confirmed. The patient was taken to the operating room, sedated and placed under general anesthesia with an endotracheal tube . Eyes were taped and were prepped and draped in the usual sterile fashion. The nose was examined, and the left anterior septum was injected with 1% lidocaine with 1:100,000 epinephrine. [place] incision was made and a mucoperichondrial flap was elevated to expose the quadrangular cartilage and bony septum. Incision was then made anteriorly on the quadrangular cartilage to elevate the contralateral mucoperichondrial flap. The deviated quadrangular cartilage was excised with a Hector knife. At least 1 cm of dorsal and caudal strut of quadrangular was left in place. We resected the deviated bony septum with a [place] and a pituitary forceps. After adequate resection of the posterior-inferior bony septum, the mucoperichondrial Flap was laid back in anatomic position.04 vicryl sutures were used to suture the incision We proceeded to the endoscopic sinus procedure starting on the right side. The agger nasi area was injected with 1% lidocaine with 1:100,000 epinephrine. The body of the middle turbinate was injected with 1% lidocaine with 1:100,000 epinephrine. The middle turbinate was gently medialized and the uncinectomy was performed with a pediatric Ziegler backbiter and the uncinectomy was completed with a shaver from the inferior-posterior attachment to the superior anterior attachment. The ethmoidectomy was performed by shaving the anterior ethmoid bulla and care was taken to protect the skull base in the lamina papyracea. Maxillary antrum was re-examined with a 30-degree scope. A ball probe was passed into the antrum and was further widened with a backbiter in the anterior- inferior aspect.right posterior ethmoidectomy was done through the inferio- medial quadrant of basal lamella ,posterior ethmoid cells were removed from anterior to posterior direction and from inferior to superior taking care to preserve skull base and lamina papyracea.then ,lateralization of the middle turbinate and shaving,opening of the posterior corridor and shaving the post erior part of the middle turbinate to widen the superior meatus and i proceeded to the left side : The agger nasi area was injected with 1% lidocaine with 1:100,000 epinephrine. The body of the middle turbinate was injected with 1% lidocaine with 1:100,000 epinephrine. The middle turbinate was gently medialized and the uncinectomy was performed with a pediatric Ziegler backbiter and the uncinectomy was completed with a shaver from the inferior-posterior attachment to the superior anterior attachment. The ethmoidectomy was performed by shaving the anterior ethmoid bulla and care was taken to protect the skull base in the lamina papyracea. Maxillary antrum was re-examined with a 30-degree scope. A ball probe was passed into the antrum and was further widened with a backbiter in the anterior- inferior aspect.left posterior ethmoidectomy was done through the inferio- medial quadrant of basal lamella ,posterior ethmoid cells were removed from anterior to posterior direction and from inferior to superior taking care to preserve skull base and lamina papyracea.then ,lateralization of the middle turbinate and shaving,opening of the posterior corridor and shaving the posterior part of the middle turbinate to widen the superior meatus Agger Nasi cells on left were opened with the shaver and 30-degree scope. Frontal sinus ostium was identified with lighted guidewire. Then the balloon was passed into the frontal sinus and the ostia was adequately dilated. Shaver was used to debride excess tissue to clear the frontal recess. We proceeded with submucosal inferior turbinate reduction, starting on the right side, a stab incision was made anterior mucosa of inferior turbinate. Submucosal pocket was created along the length of the inferior turbinate and the microdebrider blade 2mm thick was introduced anteriorly and into the whole submucosal pocket. Microdebrider was then used to remove the hypertrophied bony parts of anterior turbinate head and soft tissue with the outer layer intact. The residual inferior turbinate was then out fractured using Boies elevator. We proceeded to the left side. A stab incision was made on the anterior mucosa of inferior turbinate. Submucosal pocket was created along the length of the inferior turbinate and the microdebrider blade 2 mm thick was introduced anteriorly and into the whole submucosal pocket. Microdebrider was then used to remove the hypertrophied bony parts of anterior turbinate head and soft tissue with the outer layer intact. The residual inferior turbinate was then out fractured using Boies elevator. Pledgets were removed from ethmoid cavities, PosiSep X BAM Hemostat Dressing sponges were placed in ethmoid cavities bilaterally and infiltrated with a mixture of kenalog and cefazolin. The nose was then suctioned clean and at this point the care of the patient was then transferred to the anesthesiologist where the patient emerged from general anesthesia without complication. Estimated Blood Loss 5 (ml) Drains No Packing Yes (3.5 merocel nasal packing ) Complications No immediate complications Condition Stable Disposition PACU [facility] Billing Surgery - Charge Forward: Surgery Billing
[2025-04-21] MEDS: TRANEXAMIC ACID 1,000MG/ISO100 1,000 MG/100 ML BAG 200 MG IVPB (07:30)
[2025-04-21] MEDS: ceFAZolin 2 GM in SODIUM CHLORIDE 0.9% IV 50 ML 100 ML IVPB (07:30)
[2025-04-21] MEDS: COCAINE HCL (*CRX) 4% TOP SOLN 4 ML VIAL 1 APPLIC TOPICAL (07:53)
[2025-04-21] MEDS: LIDO 1%/EPINEPHRINE 1:100,000 20 ML VIAL 5 ML INFILTRATE (07:53)
[2025-04-21] MEDS: TRIAMCINOLONE ACET INJ 40 MG/ML VIAL IM (07:56)
[2025-04-21] MEDS: ONDANSETRON INJ 4 MG/2 ML VIAL IV PUSH (10:40)
[2025-04-21] MEDS: SCOPOLAMINE 1 MG PATCH 1 PATCH TRANSDERM (11:43)
== END 2025-04-21 13:34 | disposition home or self-care (01) ==
PROVIDERS: PCP Family Medicine; Visit Provider Otolaryngology Otolaryngology/Facial Plastic Surgery
PROC: (CPT 30520; principal; 2025-04-21 07:30)
PROC: (CPT 30520; 2025-04-21 07:30)
DX: J32.2 Chronic ethmoidal sinusitis (principal); J32.0 Chronic maxillary sinusitis; J32.1 Chronic frontal sinusitis; J34.3 Hypertrophy of nasal turbinates; R06.83 Snoring; R06.5 Mouth breathing; G89.18 Other acute postprocedural pain; E03.9 Hypothyroidism, unspecified; J45.909 Unspecified asthma, uncomplicated; Z98.890 Other specified postprocedural states; Z98.891 History of uterine scar from previous surgery; Z87.891 Personal history of nicotine dependence; Z82.49 Family history of ischemic heart disease and other diseases of the circulatory system
CPT/HCPCS: 30520; 30140; 31256; 31255; 31296; 61782; J0690; A9270; C1726; J0616; J1100; J1171; J1200; J2003; J2004; J2250; J2405; J2704; J2919; J3010; J3301; J7050; J7120